=== PATIENT | female | born 1970 | race Caucasian/White ===

== ENCOUNTER 2018-02-05 07:43 | Emergency (ER) | payer BC, OTHER ==
[~2018-02-05] VITALS: Ht 167.6 cm; Wt 101.6 kg
[~2018-02-05 07:43] MED LIST: HUMALOG100 UNITS/; LANTUS100 UNITS/ SC; ZESTRIL40 MG PO; ZOCOR10 MG PO
[2018-02-05] MEDS ORDERED: FERROUS SULFAT325 MG PO (10:39)
[2018-02-05] MEDS ORDERED: KEFLEX500 MG PO (10:39)
[2018-02-05 10:53] VITALS: BP 142/78
== END 2018-02-05 10:55 | disposition home or self-care (01) ==
LOC: FSED 07:43
DX: M79.661 Pain in right lower leg (principal); L03.115 Cellulitis of right lower limb; D50.0 Iron deficiency anemia secondary to blood loss (chronic); I10 Essential (primary) hypertension; E11.9 Type 2 diabetes mellitus without complications
CPT/HCPCS: 80053; 81003; 81025; 85025; 93970; 99284